=== PATIENT | male | born 1940 | race Caucasian/White ===

== ENCOUNTER 2020-08-20 22:05 | Inpatient (IN) ==
[2020-08-21] MEDS ORDERED: Acetaminophen 325 MG TABLET PO PRN (00:11)
[2020-08-21] MEDS ORDERED: Naloxone 0.4 MG/ML INJ IVP PRN (00:11)
[2020-08-21] MEDS ORDERED: Melatonin 3 MG TABLET PO PRN (00:11)
[2020-08-21] MEDS ORDERED: Ondansetron 4 MG/2 ML VIAL IVP PRN (00:11)
[2020-08-21] MEDS: Ipratropium 1 PUFF INHALER IH SCH ×6 (04:09→23:16)
[2020-08-21 07:28] LABS: Basophils % 0.2 %; Hematocrit 46.1 % (37.5-50.1); Immature Granulocytes % 0.7 % (0-4); Lymphocytes # 0.7 K/mcL (0.6-4.6); Lymphocytes % 15.8 %; Mean Corpuscular HGB Conc 32.5 g/dL (31.6-35.5); Mean Corpuscular Hemoglobin 30.3 pg (28.0-33.3); Mean Corpuscular Volume 93.1 fL (83.0-100.0); Mean Platelet Volume 9.6 fL (9.4-12.4); Monocytes # 0.4 K/mcL (0.0-1.3); Monocytes % 8.5 %; Neutrophils # 3.1 K/mcL (1.6-8.9); Platelet Count 209 K/mcL (140-400); Red Blood Count 4.95 M/mcL (4.19-5.50); Segmented Neutrophils % 74.8 %; White Blood Count 4.1 K/mcL (4.3-11.1)
[2020-08-21 07:39] LABS: INR 1.2; Prothrombin Time 13.9 Seconds (9.4-12.1)
[2020-08-21 07:56] LABS: Alanine Aminotransferase 30 Units/L (7-52); Albumin 3.7 g/dL (3.5-5.7); Albumin/Globulin Ratio 1.3 (1.1-2.2); Alkaline Phosphatase 84 Units/L (34-104); Aspartate Amino Transferase 24 Units/L (13-39); BUN/Creatinine Ratio 22 (6-26); Bilirubin,Total 0.8 mg/dL (0.3-1.0); Blood Urea Nitrogen 16 mg/dL (8-23); Calcium 9.2 mg/dL (8.6-10.3); Carbon Dioxide 26 mEq/L (23-29); Chloride 104 mEq/L (98-107); Globulin 2.8 g/dL (2.4-3.5); Glucose 158 mg/dL (70-105); Magnesium 1.9 mg/dL (1.6-2.6); Osmolality,Calculated 292 (280-300); Phosphorous 3.2 mg/dL (2.7-4.5); Potassium 3.9 mEq/L (3.5-5.1); Sodium 139 mEq/L (136-145); Total Protein 6.5 g/dL (6.4-8.9); eGFR For African Americans > 60 (> 60); eGFR For Non-African Americans > 60 (> 60)
[2020-08-21] MEDS ORDERED: Remdesivir 200 MG in 0.9 % Sodium Chloride 100 ML IVPB ONE ×3 (12:45→13:00)
[2020-08-21 13:38] LABS: C-Reactive Protein 47 mg/L (Less than 10); Lactate Dehydrogenase 217 Units/L (140-271)
[2020-08-21 13:42] LABS: Alanine Aminotransferase 32 Units/L (7-52); Albumin 3.7 g/dL (3.5-5.7); Albumin/Globulin Ratio 1.3 (1.1-2.2); Alkaline Phosphatase 83 Units/L (34-104); Aspartate Amino Transferase 26 Units/L (13-39); BUN/Creatinine Ratio 23 (6-26); Bilirubin,Total 0.7 mg/dL (0.3-1.0); Blood Urea Nitrogen 17 mg/dL (8-23); Calcium 9.3 mg/dL (8.6-10.3); Carbon Dioxide 24 mEq/L (23-29); Chloride 105 mEq/L (98-107); Globulin 2.9 g/dL (2.4-3.5); Glucose 160 mg/dL (70-105); Osmolality,Calculated 291 (280-300); Potassium 3.6 mEq/L (3.5-5.1); Sodium 138 mEq/L (136-145); Total Protein 6.6 g/dL (6.4-8.9); eGFR For African Americans > 60 (> 60); eGFR For Non-African Americans > 60 (> 60)
[2020-08-21] MEDS: *HR* Heparin 5,000 UNIT/ML VIAL SQ SCH (17:43)
[2020-08-22] MEDS: Ipratropium 1 PUFF INHALER IH SCH ×6 (03:48→23:40)
[2020-08-22] MEDS: *HR* Heparin 5,000 UNIT/ML VIAL SQ SCH ×2 (05:04→18:08)
[2020-08-22 05:42] LABS: Hematocrit 45.1 % (37.5-50.1); Hemoglobin 14.8 g/dL (12.9-16.9); Mean Corpuscular HGB Conc 32.8 g/dL (31.6-35.5); Mean Corpuscular Hemoglobin 30.6 pg (28.0-33.3); Mean Corpuscular Volume 93.2 fL (83.0-100.0); Mean Platelet Volume 10.3 fL (9.4-12.4); Platelet Count 230 K/mcL (140-400); Red Blood Count 4.84 M/mcL (4.19-5.50); Red Cell Distribution Width 13.1 % (11.5-14.5)
[2020-08-22 06:03] LABS: Albumin 3.5 g/dL (3.5-5.7); Albumin/Globulin Ratio 1.3 (1.1-2.2); Bilirubin,Direct 0.2 mg/dL (0.0-0.2); Bilirubin,Indirect 0.3 mg/dL (0.0-1.0); Bilirubin,Total 0.5 mg/dL (0.3-1.0); Globulin 2.8 g/dL (2.4-3.5); Total Protein 6.3 g/dL (6.4-8.9)
[2020-08-22] MEDS ORDERED: Isovue-370 500 ML BOTTLE IVP ONE (10:01)
[2020-08-22] MEDS: Remdesivir 100 MG in 0.9 % Sodium Chloride 100 ML IVPB SCH (13:35)
[2020-08-23 00:12] LABS: ABG Base Excess 2 mEq/L (-2 to 3); ABG HCO3 26 mEq/L (21-27); ABG Oxygen Saturation 95 % (95-98); ABG PCO2 40 mmHg (35-45); ABG PH 7.43 pH Units (7.32-7.45); ABG PO2 72 mmHg (85-104); ABG TCO2 28 mEq/L (20-26)
[2020-08-23] MEDS: Ipratropium 1 PUFF INHALER IH SCH ×6 (03:25→23:46)
[2020-08-23] MEDS: *HR* Heparin 5,000 UNIT/ML VIAL SQ SCH ×2 (05:39→18:06)
[2020-08-23 06:35] LABS: Hematocrit 46.3 % (37.5-50.1); Hemoglobin 15.3 g/dL (12.9-16.9); Mean Corpuscular Hemoglobin 30.8 pg (28.0-33.3); Mean Corpuscular Volume 93.2 fL (83.0-100.0); Mean Platelet Volume 9.7 fL (9.4-12.4); Platelet Count 272 K/mcL (140-400); Red Blood Count 4.97 M/mcL (4.19-5.50); White Blood Count 5.7 K/mcL (4.3-11.1)
[2020-08-23 06:56] LABS: Alanine Aminotransferase 34 Units/L (7-52); Albumin 3.6 g/dL (3.5-5.7); Albumin/Globulin Ratio 1.3 (1.1-2.2); Alkaline Phosphatase 86 Units/L (34-104); Aspartate Amino Transferase 21 Units/L (13-39); BUN/Creatinine Ratio 27 (6-26); Bilirubin,Direct 0.1 mg/dL (0.0-0.2); Bilirubin,Indirect 0.5 mg/dL (0.0-1.0); Bilirubin,Total 0.6 mg/dL (0.3-1.0); Blood Urea Nitrogen 21 mg/dL (8-23); Calcium 9.2 mg/dL (8.6-10.3); Carbon Dioxide 27 mEq/L (23-29); Chloride 106 mEq/L (98-107); Globulin 2.8 g/dL (2.4-3.5); Glucose 126 mg/dL (70-105); Osmolality,Calculated 299 (280-300); Potassium 3.7 mEq/L (3.5-5.1); Sodium 142 mEq/L (136-145); Total Protein 6.4 g/dL (6.4-8.9); eGFR For African Americans > 60 (> 60); eGFR For Non-African Americans > 60 (> 60)
[2020-08-23] MEDS: Aspirin 325 MG TABLET PO SCH (09:34)
[2020-08-23] MEDS: Remdesivir 100 MG in 0.9 % Sodium Chloride 100 ML IVPB SCH (13:12)
[2020-08-24] MEDS: Ipratropium 1 PUFF INHALER IH SCH ×5 (03:36→19:32)
[2020-08-24 05:03] LABS: Hematocrit 45.7 % (37.5-50.1); Hemoglobin 14.8 g/dL (12.9-16.9); Mean Corpuscular HGB Conc 32.4 g/dL (31.6-35.5); Mean Corpuscular Hemoglobin 30.3 pg (28.0-33.3); Mean Corpuscular Volume 93.6 fL (83.0-100.0); Mean Platelet Volume 10.5 fL (9.4-12.4); Platelet Count 272 K/mcL (140-400); Red Blood Count 4.88 M/mcL (4.19-5.50); Red Cell Distribution Width 12.9 % (11.5-14.5); White Blood Count 5.6 K/mcL (4.3-11.1)
[2020-08-24 05:30] LABS: BUN/Creatinine Ratio 32 (6-26); Blood Urea Nitrogen 22 mg/dL (8-23); Carbon Dioxide 28 mEq/L (23-29); Chloride 107 mEq/L (98-107); Glucose 136 mg/dL (70-105); Osmolality,Calculated 297 (280-300); Potassium 3.8 mEq/L (3.5-5.1); Sodium 141 mEq/L (136-145); eGFR For African Americans > 60 (> 60); eGFR For Non-African Americans > 60 (> 60)
[2020-08-24 05:32] LABS: Albumin 3.4 g/dL (3.5-5.7); Albumin/Globulin Ratio 1.3 (1.1-2.2); Bilirubin,Direct 0.2 mg/dL (0.0-0.2); Bilirubin,Indirect 0.4 mg/dL (0.0-1.0); Bilirubin,Total 0.6 mg/dL (0.3-1.0); Globulin 2.7 g/dL (2.4-3.5); Total Protein 6.1 g/dL (6.4-8.9)
[2020-08-24] MEDS: *HR* Heparin 5,000 UNIT/ML VIAL SQ SCH ×2 (05:32→17:24)
[2020-08-24] MEDS: Aspirin 325 MG TABLET PO SCH (09:39)
[2020-08-24] MEDS: Dexamethasone Sodium Phos/PF 10 MG/ML VIAL IVP SCH (09:45)
[2020-08-24] MEDS: Remdesivir 100 MG in 0.9 % Sodium Chloride 100 ML IVPB SCH (13:17)
[2020-08-25] MEDS: Ipratropium 1 PUFF INHALER IH SCH ×7 (00:09→23:28)
[2020-08-25 02:36] LABS: Hematocrit 46.2 % (37.5-50.1); Hemoglobin 14.9 g/dL (12.9-16.9); Mean Corpuscular HGB Conc 32.3 g/dL (31.6-35.5); Mean Corpuscular Hemoglobin 30.1 pg (28.0-33.3); Mean Corpuscular Volume 93.3 fL (83.0-100.0); Mean Platelet Volume 10.2 fL (9.4-12.4); Platelet Count 297 K/mcL (140-400); Red Blood Count 4.95 M/mcL (4.19-5.50); Red Cell Distribution Width 12.4 % (11.5-14.5); White Blood Count 7.3 K/mcL (4.3-11.1)
[2020-08-25 02:52] LABS: Albumin 3.4 g/dL (3.5-5.7); Albumin/Globulin Ratio 1.3 (1.1-2.2); Bilirubin,Direct 0.2 mg/dL (0.0-0.2); Bilirubin,Indirect 0.3 mg/dL (0.0-1.0); Bilirubin,Total 0.5 mg/dL (0.3-1.0); Globulin 2.6 g/dL (2.4-3.5)
[2020-08-25 02:53] LABS: BUN/Creatinine Ratio 28 (6-26); Blood Urea Nitrogen 18 mg/dL (8-23); Calcium 9.1 mg/dL (8.6-10.3); Carbon Dioxide 26 mEq/L (23-29); Chloride 105 mEq/L (98-107); Glucose 199 mg/dL (70-105); Osmolality,Calculated 297 (280-300); Potassium 3.7 mEq/L (3.5-5.1); Sodium 140 mEq/L (136-145); eGFR For African Americans > 60 (> 60); eGFR For Non-African Americans > 60 (> 60)
[2020-08-25] MEDS: *HR* Heparin 5,000 UNIT/ML VIAL SQ SCH ×2 (05:51→17:40)
[2020-08-25] MEDS: Dexamethasone Sodium Phos/PF 10 MG/ML VIAL IVP SCH (08:16)
[2020-08-25] MEDS: Aspirin 325 MG TABLET PO SCH (08:30)
[2020-08-25] MEDS: Remdesivir 100 MG in 0.9 % Sodium Chloride 100 ML IVPB SCH (17:36)
[2020-08-26] MEDS: Ipratropium 1 PUFF INHALER IH SCH ×6 (03:42→23:31)
[2020-08-26] MEDS: *HR* Heparin 5,000 UNIT/ML VIAL SQ SCH ×2 (05:30→16:16)
[2020-08-26 06:15] LABS: Hematocrit 46.5 % (37.5-50.1); Hemoglobin 15.2 g/dL (12.9-16.9); Mean Corpuscular HGB Conc 32.7 g/dL (31.6-35.5); Mean Corpuscular Hemoglobin 30.3 pg (28.0-33.3); Mean Corpuscular Volume 92.6 fL (83.0-100.0); Mean Platelet Volume 9.7 fL (9.4-12.4); Platelet Count 348 K/mcL (140-400); Red Blood Count 5.02 M/mcL (4.19-5.50); Red Cell Distribution Width 12.5 % (11.5-14.5); White Blood Count 10.2 K/mcL (4.3-11.1)
[2020-08-26 06:45] LABS: Albumin 3.4 g/dL (3.5-5.7); Albumin/Globulin Ratio 1.4 (1.1-2.2); Bilirubin,Direct 0.3 mg/dL (0.0-0.2); Bilirubin,Indirect 0.5 mg/dL (0.0-1.0); Bilirubin,Total 0.8 mg/dL (0.3-1.0); Globulin 2.5 g/dL (2.4-3.5); Total Protein 5.9 g/dL (6.4-8.9)
[2020-08-26 06:46] LABS: BUN/Creatinine Ratio 27 (6-26); Blood Urea Nitrogen 23 mg/dL (8-23); Calcium 9.4 mg/dL (8.6-10.3); Carbon Dioxide 27 mEq/L (23-29); Chloride 105 mEq/L (98-107); Glucose 166 mg/dL (70-105); Osmolality,Calculated 301 (280-300); Sodium 142 mEq/L (136-145); eGFR For African Americans > 60 (> 60); eGFR For Non-African Americans > 60 (> 60)
[2020-08-26] MEDS: Aspirin 325 MG TABLET PO SCH (08:19)
[2020-08-26] MEDS: Furosemide 20 MG TABLET PO SCH (08:19)
[2020-08-26] MEDS: Dexamethasone Sodium Phos/PF 10 MG/ML VIAL IVP SCH (08:20)
[2020-08-27 02:06] LABS: Alanine Aminotransferase 110 Units/L (7-52); Albumin 3.2 g/dL (3.5-5.7); Albumin/Globulin Ratio 1.3 (1.1-2.2); Alkaline Phosphatase 81 Units/L (34-104); Aspartate Amino Transferase 25 Units/L (13-39); BUN/Creatinine Ratio 33 (6-26); Bilirubin,Total 0.5 mg/dL (0.3-1.0); Blood Urea Nitrogen 27 mg/dL (8-23); Calcium 8.9 mg/dL (8.6-10.3); Carbon Dioxide 24 mEq/L (23-29); Chloride 106 mEq/L (98-107); Globulin 2.5 g/dL (2.4-3.5); Glucose 242 mg/dL (70-105); Osmolality,Calculated 301 (280-300); Potassium 3.8 mEq/L (3.5-5.1); Sodium 139 mEq/L (136-145); Total Protein 5.7 g/dL (6.4-8.9); eGFR For African Americans > 60 (> 60); eGFR For Non-African Americans > 60 (> 60)
[2020-08-27] MEDS: Ipratropium 1 PUFF INHALER IH SCH ×4 (04:05→15:36)
[2020-08-27] MEDS: *HR* Heparin 5,000 UNIT/ML VIAL SQ SCH (06:34)
[2020-08-27] MEDS: Aspirin Enteric Coated 81 MG Tablet PO SCH (07:27)
[2020-08-27] MEDS: Furosemide 20 MG TABLET PO SCH (07:27)
[2020-08-27] MEDS: Dexamethasone Sodium Phos/PF 10 MG/ML VIAL IVP SCH (07:28)
[2020-08-27] MEDS ORDERED: Ipratropium 1 PUFF INHALER IH PRN (16:05)
[2020-08-27] MEDS: Finasteride 5 MG TABLET PO SCH (16:34)
[2020-08-27] MEDS ORDERED: *HR* Heparin 5,000 UNIT/ML VIAL SQ SCH (18:00)
[2020-08-28] MEDS: *HR* Enoxaparin 40 MG/0.4 ML SYRINGE SQ SCH (05:32)
[2020-08-28 06:52] LABS: Hematocrit 47.6 % (37.5-50.1); Hemoglobin 16.1 g/dL (12.9-16.9); Mean Corpuscular HGB Conc 33.8 g/dL (31.6-35.5); Mean Corpuscular Hemoglobin 31.1 pg (28.0-33.3); Mean Corpuscular Volume 92.1 fL (83.0-100.0); Mean Platelet Volume 9.9 fL (9.4-12.4); Platelet Count 342 K/mcL (140-400); Red Blood Count 5.17 M/mcL (4.19-5.50); Red Cell Distribution Width 12.7 % (11.5-14.5); White Blood Count 13.3 K/mcL (4.3-11.1)
[2020-08-28 07:18] LABS: BUN/Creatinine Ratio 29 (6-26); Blood Urea Nitrogen 24 mg/dL (8-23); Calcium 9.1 mg/dL (8.6-10.3); Carbon Dioxide 31 mEq/L (23-29); Chloride 103 mEq/L (98-107); Glucose 143 mg/dL (70-105); Osmolality,Calculated 297 (280-300); Potassium 3.7 mEq/L (3.5-5.1); Sodium 140 mEq/L (136-145); eGFR For African Americans > 60 (> 60); eGFR For Non-African Americans > 60 (> 60)
[2020-08-28] MEDS: Finasteride 5 MG TABLET PO SCH (09:08)
[2020-08-28] MEDS: Dexamethasone Sodium Phos/PF 10 MG/ML VIAL IVP SCH (09:08)
[2020-08-28] MEDS: Aspirin Enteric Coated 81 MG Tablet PO SCH (09:08)
[2020-08-28] MEDS: Furosemide 20 MG TABLET PO SCH (09:08)
[2020-08-29] MEDS: *HR* Enoxaparin 40 MG/0.4 ML SYRINGE SQ SCH (05:33)
[2020-08-29 05:49] LABS: Basophils % 0.4 %; Eosinophils % 0.1 %; Hematocrit 44.5 % (37.5-50.1); Hemoglobin 14.7 g/dL (12.9-16.9); Lymphocytes # 1.4 K/mcL (0.6-4.6); Lymphocytes % 12.5 %; Mean Corpuscular Hemoglobin 30.4 pg (28.0-33.3); Mean Corpuscular Volume 91.9 fL (83.0-100.0); Monocytes # 0.8 K/mcL (0.0-1.3); Monocytes % 6.9 %; Neutrophils # 8.8 K/mcL (1.6-8.9); Platelet Count 304 K/mcL (140-400); Red Blood Count 4.84 M/mcL (4.19-5.50); Red Cell Distribution Width 12.7 % (11.5-14.5); Segmented Neutrophils % 78.1 %; White Blood Count 11.3 K/mcL (4.3-11.1)
[2020-08-29 06:52] LABS: BUN/Creatinine Ratio 25 (6-26); Blood Urea Nitrogen 20 mg/dL (8-23); Calcium 8.8 mg/dL (8.6-10.3); Carbon Dioxide 28 mEq/L (23-29); Chloride 104 mEq/L (98-107); Glucose 161 mg/dL (70-105); Osmolality,Calculated 296 (280-300); Potassium 3.7 mEq/L (3.5-5.1); Sodium 140 mEq/L (136-145); eGFR For African Americans > 60 (> 60); eGFR For Non-African Americans > 60 (> 60)
[2020-08-29] MEDS: Finasteride 5 MG TABLET PO SCH (09:43)
[2020-08-29] MEDS: Aspirin Enteric Coated 81 MG Tablet PO SCH (09:43)
[2020-08-29] MEDS: Furosemide 20 MG TABLET PO SCH (09:43)
[2020-08-29] MEDS: Dexamethasone Sodium Phos/PF 10 MG/ML VIAL IVP SCH (09:43)
[2020-08-29 11:09] VITALS: BP 147/81
== END 2020-08-29 16:10 | disposition home or self-care (01) | DRG 177 ==
LOC: 3BNU → SUATTDRO 23:09 → 2NENU 08-23 16:36
PROVIDERS: ADMIT Internal Medicine; ATTEND Internal Medicine